=== PATIENT | male | born 1955 | race Caucasian/White ===

== ENCOUNTER → 2018-10-08 | Day surgery (SDC) | payer BC ==
[~2018-10-08] VITALS: Ht 180.3 cm; Wt 101.2 kg
[~2018-10-08] MED LIST: AMLODIPINE10 MG PO; ASPIRIN81 M1 PO; KCL PO; OMEPRAZOLE20 M2 PO; OMEPRAZOLE20 MG PO; SIMVASTATIN10 MG PO
--- NOTE | ~2018-10-08 | O ---
[place], [place] OPERATIVE NOTE NAME: DANNIELLE CUNNINGHAM UNIT #: [id number] ROOM: DOCTOR: ERINN GALICIA MD BIRTHDATE: [birth year] DOS: 10/08/2018 GASTROENDOSCOPIC REPORT HISTORY OF PRESENT ILLNESS: The patient is a 63-year-old patient who presented with concern about colonic screening as well as dyspepsia, reflux symptomatology, undergoing investigation. PROCEDURE: Today's procedure part of investigation is panendoscopy and colonoscopy. PREMEDICATION: Propofol. SCOPE: Olympus forward-viewing gastroscope Q10 video. REPORT: After putting the patient in the left lateral position and application of lubricant to the scope, the scope was introduced. Thereafter, under direct visualization, I advanced through the length of esophagus without difficulty. Bile reflux through the esophagus. Gastric pouch was noticed. Gastritis was biopsied. Duodenal bulb, second and third part within normal limit. The patient was extubated, tolerated the procedure well. IMPRESSION: Bile reflux esophagitis consistent with GERD, status post antral biopsy for H. pylori. PLAN AND DISCUSSION: Omeprazole 20 mg daily and clinical reassessment, antireflux. I am going to proceed with colonoscopy. HISTORY OF PRESENT ILLNESS: The patient is a 63-year-old patient who presented with chief complaint of colonic screening, undergoing investigation. PROCEDURE: Today's procedure part of investigation is colonoscopy plus snare polypectomy. PREMEDICATION: Propofol. SCOPE: Olympus forward-viewing colonoscope 10L video. REPORT: After putting the patient in the left lateral position and application of lubricant to the scope, the scope was introduced. Thereafter, under direct visualization, I advanced through the length of colon without difficulty. Diverticulosis was appreciated. Base of the cecum explored. Sessile polypoid lesion in hepatic flexure with snare was polypectomized. The patient extubated, tolerated the procedure well. IMPRESSION: Diverticulosis, hepatic flexure, sessile polyp, status post piecemeal polypectomy. PLAN: High fiber fruit diet. [place], [place] OPERATIVE NOTE NAME: DANNIELLE CUNNINGHAM UNIT #: [id number] ROOM: DOCTOR: ERINN GALICIA MD BIRTHDATE: [birth year] ACTIVITY: Ad chelo. FOLLOWUP: As an outpatient. ERINN GALICIA MD CM:ARASELI:OPERATIVE NOTE [id number] PHILLY GALICIA MD 10/12/18 1132 interface
[2018-10-08 16:30] VITALS: BP 150/81
[2018-10-08 17:32] VITALS: BP 127/67
[2018-10-08 17:47] VITALS: BP 140/77
[2018-10-08 18:02] VITALS: BP 137/68
== END | disposition home or self-care (01) ==
LOC: SDC 10-05 14:00
DX: Z12.11 Encounter for screening for malignant neoplasm of colon (principal); D12.3 Benign neoplasm of transverse colon; K29.50 Unspecified chronic gastritis without bleeding; R13.10 Dysphagia, unspecified; K63.5 Polyp of colon; K21.0 Gastro-esophageal reflux disease with esophagitis; G47.33 Obstructive sleep apnea (adult) (pediatric); I10 Essential (primary) hypertension; E78.00 Pure hypercholesterolemia, unspecified; E78.5 Hyperlipidemia, unspecified; E66.9 Obesity, unspecified; Z68.31 Body mass index [BMI] 31.0-31.9, adult; Z79.899 Other long term (current) drug therapy; Z83.3 Family history of diabetes mellitus; Z82.49 Family history of ischemic heart disease and other diseases of the circulatory system; Z88.8 Allergy status to other drugs, medicaments and biological substances

== ENCOUNTER 2020-05-04 14:53 | Emergency (ER) | payer BC ==
[~2020-05-04] VITALS: Ht 180.3 cm; Wt 102.1 kg
[2020-05-04 14:58] VITALS: BP 154/84
== END 2020-05-04 17:03 | disposition home or self-care (01) ==
LOC: ED 14:53
DX: S46.912A Strain of unspecified muscle, fascia and tendon at shoulder and upper arm level, left arm, initial encounter (principal); I10 Essential (primary) hypertension; E78.00 Pure hypercholesterolemia, unspecified; K21.9 Gastro-esophageal reflux disease without esophagitis; Z88.1 Allergy status to other antibiotic agents; Z79.899 Other long term (current) drug therapy; Z79.82 Long term (current) use of aspirin; W00.0XXA Fall on same level due to ice and snow, initial encounter; Y93.89 Activity, other specified; Y92.89 Other specified places as the place of occurrence of the external cause; Y99.8 Other external cause status

== ENCOUNTER → 2022-07-21 | Outpatient (CLI) | payer BC | END | disposition home or self-care (01) | LOC: CARD 01:33 | PROVIDERS: ATTEND Internal Medicine | DX: I34.0 Nonrheumatic mitral (valve) insufficiency (principal) ==

== ENCOUNTER → 2023-07-24 | Outpatient (CLI) | payer BC | END | disposition home or self-care (01) | LOC: US 07-22 13:00 | PROVIDERS: ATTEND Family Medicine | DX: D17.0 Benign lipomatous neoplasm of skin and subcutaneous tissue of head, face and neck (principal) ==

== ENCOUNTER → 2024-01-25 | Outpatient (CLI) | payer BC, MEDICARE ==
[2024-01-25 10:51] LABS: BASO # 0.1 10*3/uL (0.0-0.1); BASO % 0.9 % (0.0-1.0); EOS # 0.2 10*3/uL (0.0-0.4); EOS % 2.2 % (1.0-4.0); HEMATOCRIT 54.1 % (42.0-52.0); LYMPH # 2.5 10*3/uL (1.3-4.4); LYMPH % 29.3 % (27.0-41.0); MEAN CELL VOLUME 84.9 fl (80.0-94.0); MEAN CORPUSCULAR HGB 27.2 pg (27.0-31.0); MEAN PLATELET VOLUME 9.6 fl (9.6-12.3); MONO # 0.6 10*3/uL (0.1-1.0); MONO % 6.9 % (3.0-9.0); NEUT # 5.1 10*3/uL (2.3-7.9); NEUT % 60.3 % (47.0-73.0); PLATELET COUNT AUTOMATED 264 10*3/uL (130-400); RED BLOOD COUNT 6.37 10*6/uL (4.50-5.90); RED CELL DISTRI WIDTH 13.9 % (0-14.5); WHITE BLOOD COUNT 8.5 10*3/uL (4.8-10.8)
[2024-01-25 11:31] LABS: ALKALINE PHOSPHATASE 94 U/L (46-116); BUN 20 mg/dl (9-23); CHLORIDE 105 mmol/L (98-107); CHOLESTEROL 188 mg/dL (<200); LDL CHOLESTEROL 133 mg/dL (9-159); POTASSIUM 3.4 mmol/L (3.4-5.1); SGPT/ALT 26 U/L (5-49); TOTAL PROTEIN 7.7 gm/dL (6.0-8.0); TRIGLYCERIDES 75 mg/dl (<150)
== END | disposition home or self-care (01) ==
LOC: LAB 10:08
PROVIDERS: ATTEND Internal Medicine
DX: E78.5 Hyperlipidemia, unspecified (principal); D75.1 Secondary polycythemia; E55.9 Vitamin D deficiency, unspecified